=== PATIENT | female | born 1970 | race Caucasian/White ===

== ENCOUNTER 2020-08-17 12:08 | Inpatient (IN) | payer OTHER ==
[~2020-08-17] VITALS: Ht 157.5 cm; Wt 72.7 kg
[~2020-08-17 12:08] MED LIST: NO MEDS
[2020-08-17 12:46] LABS: BASOPHILS % (AUTO) 0.5 % (0.0-2.0); EOSINOPHILS % (AUTO) 2.7 % (1.0-6.0); HEMATOCRIT 40.2 % (36-46); HEMOGLOBIN 13.5 g/dL (12.0-16.0); LYMPHOCYTES # (AUTO) 3.2 K/uL (1.0-4.8); LYMPHOCYTES % (AUTO) 36.9 % (22.0-44.0); MEAN CORPUSCULAR HEMOGLOBIN 30.2 pg (26.0-34.0); MEAN CORPUSCULAR HGB CONC 33.5 G/dL (31.0-37.0); MEAN CORPUSCULAR VOLUME 90 fL (80-100); MONOCYTES # (AUTO) 0.6 K/uL (0.1-1.0); MONOCYTES % (AUTO) 6.8 % (2.0-9.0); NEUTROPHILS # (AUTO) 4.5 K/uL (1.8-7.7); NEUTROPHILS % (AUTO) 53.1 % (40.0-70.0); PLATELET COUNT (AUTO) 378 K/uL (150-450); RED BLOOD CELL COUNT(AUTO) 4.46 MIL/uL (4.00-5.20); RED CELL DISTRIBUTION WIDTH 13.2 % (11.5-14.5)
[2020-08-17 13:13] LABS: ANION GAP 9 mmol/L (8-16); CALCIUM, TOTAL 9.9 mg/dL (8.8-10.5); CARBON DIOXIDE 25 mmol/L (22-29); CHLORIDE 100 mmol/L (98-107); CREATININE 0.68 mg/dL (0.60-1.30); GLOMERULAR FILTR. RATE CALC > 60 mL/min (>60); GLUCOSE,RANDOM 128 mg/dL (70-110); SODIUM SERUM 134 mmol/L (136-145); UREA NITROGEN, BLOOD 14 mg/dL (7-18)
[2020-08-17] MEDS ORDERED: PB/HYOSCY/ATR/SCOP/LIDO/MAALOX 55 ML BOTTLE PO ONE (13:15)
[2020-08-17] MEDS ORDERED: FAMOTIDINE 10 MG/ML 2 ML VIAL IVP ONE (13:15)
[2020-08-17] MEDS ORDERED: ONDANSETRON HCL 4 MG/2 ML VIAL IVP ONE (13:15)
[2020-08-17 13:24] LABS: ALANINE AMINOTRANSFERASE 34 U/L (12-78); ALBUMIN 3.8 g/dL (3.4-5.0); ALKALINE PHOSPHATASE 64 U/L (46-116); ASPARTATE AMINOTRANSFERASE 18 U/L (15-37); BILIRUBIN,TOTAL 0.3 mg/dL (0.1-1.0); HCG,QUANTITATIVE < 1 mIU/mL (0-6); LIPASE 87 U/L (73-393); TOTAL PROTEIN, SERUM 7.6 g/dL (6.4-8.2)
[2020-08-17] MEDS ORDERED: KETOROLAC TROMETHAMINE 30 MG/ML VIAL IVP ONE (15:30)
[2020-08-17] MEDS ORDERED: CeFAZolin 1 GM/DEXTROSE 50 ML IV ONE (15:30)
[2020-08-17] MEDS ORDERED: ONDANSETRON HCL 4 MG/2 ML VIAL IVP PRN ×2 (15:45→16:15)
[2020-08-17] MEDS ORDERED: ACETAMINOPHEN 325 MG TABLET PO PRN ×2 (15:45→16:15)
[2020-08-17] MEDS ORDERED: 0.9% SODIUM CHLORIDE 10 ML SYRINGE IVP PRN (15:45)
[2020-08-17 15:52] LABS: COVID AG,FIA SOURCE NASOPHARYNGEAL
[2020-08-17] MEDS ORDERED: DiphenhydrAMINE HCL 50 MG/ML VIAL ONE (16:08)
[2020-08-17] MEDS ORDERED: SODIUM CHLORIDE 0.9% 1,000 ML IV ONE (16:15)
[2020-08-17] MEDS ORDERED: DiphenhydrAMINE HCL 50 MG/ML VIAL IVP ONE (16:15)
[2020-08-17 16:47] LABS: THYROID STIMULATING HORMONE 0.05 uIU/mL (0.36-3.74)
[2020-08-17 17:00] VITALS: BP 175/87
[2020-08-17] MEDS: PANTOPRAZOLE SODIUM 40 MG/VIAL IVP SCH (17:26)
[2020-08-17] MEDS: MORPHINE SULFATE 2 MG/ML SYRINGE IVP PRN (17:26)
[2020-08-17 18:33] VITALS: BP 109/54
[2020-08-17 20:14] VITALS: BP 101/61
[2020-08-17] MEDS: DOCUSATE SODIUM 100 MG CAPSULE PO SCH (21:03)
[2020-08-17 23:53] VITALS: BP 116/57
[2020-08-18 04:00] VITALS: BP 110/68
[2020-08-18] MEDS: MORPHINE SULFATE 2 MG/ML SYRINGE IVP PRN (06:46)
[2020-08-18 08:09] VITALS: BP 99/44
[2020-08-18] MEDS: DOCUSATE SODIUM 100 MG CAPSULE PO SCH ×2 (08:13→19:43)
[2020-08-18] MEDS: PANTOPRAZOLE SODIUM 40 MG/VIAL IVP SCH (08:13)
[2020-08-18] MEDS ORDERED: RINGERS SOLUTION,LACTATED 1,000 ML IV ONE (09:45)
[2020-08-18] MEDS ORDERED: BUPIVACAINE 0.25%/EPI 1:200,000/PF 10 ML VIAL ONE ×2 (10:30)
[2020-08-18] MEDS ORDERED: SODIUM CL IRRIG SOLN BAG 3,000 ML IRRIG ONE (10:31)
[2020-08-18] MEDS ORDERED: HYDROmorphone 2 MG/ML VIAL IVP PRN (12:00)
[2020-08-18] MEDS: HYDROCODONE/ACETAMINOPHEN 5-325 MG TABLET PO PRN (12:58)
[2020-08-18 13:17] VITALS: BP 142/86
[2020-08-18 15:55] VITALS: BP 120/77
[2020-08-18] MEDS: IBUPROFEN 200 MG TABLET PO SCH ×2 (16:09→19:42)
[2020-08-18 19:30] VITALS: BP 122/78
[2020-08-18 23:30] VITALS: BP 136/73
[2020-08-19] MEDS ORDERED: LIDOCAINE/PF 2% 5 ML VIAL IM ONE (01:34)
[2020-08-19] MEDS ORDERED: ONDANSETRON HCL 4 MG/2 ML VIAL IVP ONE (01:34)
[2020-08-19] MEDS ORDERED: MIDAZOLAM HCL 2 MG/2 ML VIAL IVP ONE (01:34)
[2020-08-19] MEDS ORDERED: ROCURONIUM BROMIDE 10 MG/ML 5 ML VIAL IVP ONE (01:34)
[2020-08-19] MEDS ORDERED: KETOROLAC TROMETHAMINE 60 MG/2 ML VIAL IM ONE (01:34)
[2020-08-19] MEDS ORDERED: PROPOFOL 1% 20 ML VIAL IVP ONE (01:34)
[2020-08-19] MEDS ORDERED: GLYCOPYRROLATE 0.2 MG/ML VIAL IM ONE (01:34)
[2020-08-19] MEDS ORDERED: FentaNYL CITRATE PF 100 MCG/2 ML VIAL IVP ONE (01:34)
[2020-08-19] MEDS ORDERED: NEOSTIGMINE METHYLSULFATE 1 MG/ML 10 ML VIAL IVP ONE (01:34)
[2020-08-19] MEDS ORDERED: DEXAMETHASONE SOD PHOS 4 MG/ML VIAL IVP ONE (01:34)
[2020-08-19 04:00] VITALS: BP 126/84
[2020-08-19] MEDS: HYDROCODONE/ACETAMINOPHEN 5-325 MG TABLET PO PRN (04:48)
[2020-08-19] MEDS: DOCUSATE SODIUM 100 MG CAPSULE PO SCH (07:59)
[2020-08-19] MEDS: IBUPROFEN 200 MG TABLET PO SCH (08:00)
[2020-08-19] MEDS: PANTOPRAZOLE SODIUM 40 MG/VIAL IVP SCH (08:00)
[2020-08-19 08:29] VITALS: BP 143/86
[2020-08-19] MEDS ORDERED: HYDR-4723 PO (10:44)
[2020-08-19] MEDS ORDERED: IBUP-2759 PO (10:44)
== END 2020-08-19 11:16 | disposition home or self-care (01) | DRG 263 ==
LOC: EMS 12:20 → 6N 16:28
PROVIDERS: ADMIT Internal Medicine; ATTEND Internal Medicine
PROC: 0FT44ZZ Resection of Gallbladder, Percutaneous Endoscopic Approach (ICD-10-PCS; principal; 2020-08-18 10:15)
DX: K80.12 Calculus of gallbladder with acute and chronic cholecystitis without obstruction (principal); K76.89 Other specified diseases of liver; E03.9 Hypothyroidism, unspecified; Z20.822 Contact with and (suspected) exposure to COVID-19; Z79.899 Other long term (current) drug therapy; Z90.710 Acquired absence of both cervix and uterus
CPT/HCPCS: 76705; 80053; 83605; 83690; 84443; 84484; 84702; 85025; 87040; 87081; 87426; 88304; 93005; 99285; A9575; C9113; J0690; J1100; J1200; J1885; J2250; J2270; J2405; J2704; J3010; J3490; J7030; J7120